=== PATIENT | male | born 1965 | race Caucasian/White ===

== ENCOUNTER 2018-04-21 05:15 | Day surgery (SDC) ==
[2018-04-13 09:27] LABS: HEMATOCRIT 49.5 % (42.0-52.0); HEMOGLOBIN 15.9 g/dL (14.0-18.0); MCH 31.1 PG (27-31); MCHC 32.1 g/dL (33-37); MCV 96.9 FL (81-99); MPV 9.5 FL (7.4-10.4); RBC 5.11 XMIL (4.7-6.1); RDW 13.2 % (11.5-14.5); WBC 5.97 X1000 (4.8-10.8)
[2018-04-13 09:34] LABS: INR 0.89; PROTIME 12.8 Seconds (11.0-16.0)
[2018-04-13 09:56] LABS: AGAP 15; BUN 9 mg/dL (8-22); CALCIUM 9.9 mg/dL (8.8-10.2); CHLORIDE 100 mmol/L (98-107); COSMO 284; CREATININE 0.9 mg/dL (0.7-1.2); ESTIMATED GFR > 60; GLUCOSE 172 mg/dL (70-104); POTASSIUM 4.1 mmol/L (3.5-5.1); SODIUM 141 mmol/L (136-145); TCO2 26 mmol/L (25-35)
[2018-04-21] MEDS ORDERED: KEFZOL 2 GM/D5W 2 GM/50 ML IVPB ONE (05:34)
[2018-04-21] MEDS ORDERED: LR 1,000 ML ONE ×2 (05:34→06:42)
[2018-04-21] MEDS ORDERED: VERSED ONE (06:31)
[2018-04-21] MEDS ORDERED: DIPRIVAN 1% ONE (06:31)
[2018-04-21] MEDS ORDERED: FENTANYL ONE (06:31)
[2018-04-21] MEDS ORDERED: SENSORCAINE-MPF 0.5%/EPI 1:200,000 ONE (06:42)
[2018-04-21] MEDS ORDERED: B & O 16A SUPP ONE (06:42)
[2018-04-21] MEDS ORDERED: ROBINUL ONE (07:39)
[2018-04-21] MEDS ORDERED: ZEMURON ONE (07:50)
[2018-04-21] MEDS ORDERED: NEOSTIGMINE ONE (08:10)
[2018-04-21 08:12] LABS: URINE SOURCE CATH
[2018-04-21 08:20] LABS: BILIRUBIN URINE NEGATIVE (NEGATIVE); BLOOD URINE NEGATIVE (NEGATIVE); COLOR YELLOW; GLUCOSE URINE NEGATIVE (NEGATIVE); KETONE URINE NEGATIVE (NEGATIVE); LEUKOCYTES URINE NEGATIVE (NEGATIVE); NITRITE URINE NEGATIVE (NEGATIVE); PROTEIN URINE NEGATIVE (NEGATIVE); SP GRAVITY URINE 1.008; TURBIDITY URINE CLEAR (CLEAR); UROBILINOGEN URINE NORMAL (NORMAL)
[2018-04-21 08:23] LABS: UR EPITHELIAL CELLS <10 /HPF (<10); URINE BACTERIA NEGATIVE /HPF; URINE RBC <10 /HPF (<10); URINE WBC <10 /HPF (<10)
[2018-04-21] MEDS ORDERED: ZOFRAN ONE (09:25)
[2018-04-21] MEDS ORDERED: DECADRON ONE (09:25)
[2018-04-21] MEDS ORDERED: MORPHINE ONE (09:27)
[2018-04-21] MEDS ORDERED: D5 1/2 NS 1,000 ML ONE (10:11)
[2018-04-21] MEDS ORDERED: MORPHINE IV PRN (11:47)
[2018-04-21] MEDS ORDERED: NORCO-10 PO PRN (12:00)
[2018-04-21] MEDS ORDERED: ZOFRAN IV PRN (12:00)
[2018-04-21] MEDS ORDERED: DILAUDID IV PRN ×2 (12:00)
[2018-04-21] MEDS ORDERED: PHENERGAN PR PRN (12:00)
[2018-04-21] MEDS ORDERED: OFIRMEV 1000 MG/ISOTONIC SOLN 1,000 MG/100 ML BOTTLE IV PRN (12:00)
[2018-04-21] MEDS ORDERED: LABETALOL IV PRN (12:00)
[2018-04-21] MEDS ORDERED: NORCO-7.5 PO PRN (12:00)
[2018-04-21] MEDS ORDERED: NORCO-5 PO PRN (12:00)
[2018-04-21] MEDS ORDERED: PHENERGAN IV PRN (12:00)
[2018-04-21] MEDS: D5 1/2 NS 1,000 ML IV SCH ×2 (12:00→21:14)
[2018-04-21] MEDS ORDERED: DITROPAN PO PRN (12:00)
[2018-04-21] MEDS ORDERED: SODIUM CHLORIDE 0.9% INJ PRN (12:00)
[2018-04-21] MEDS ORDERED: PHENERGAN PO PRN (12:00)
[2018-04-21] MEDS: KEFZOL 2 GM/D5W 2 GM/50 ML IVPB IV SCH ×2 (16:38→23:50)
[2018-04-21] MEDS: PERIDEX MT SCH (21:09)
[2018-04-21] MEDS: COLACE PO SCH (21:09)
[2018-04-22 06:23] LABS: HEMATOCRIT 40.6 % (42.0-52.0); HEMOGLOBIN 13.4 g/dL (14.0-18.0); MCH 31.8 PG (27-31); MCV 96.4 FL (81-99); MPV 9.4 FL (7.4-10.4); RBC 4.21 XMIL (4.7-6.1); RDW 13.3 % (11.5-14.5); WBC 14.17 X1000 (4.8-10.8)
[2018-04-22] MEDS: D5 1/2 NS 1,000 ML IV SCH (06:27)
[2018-04-22] MEDS: KEFZOL 2 GM/D5W 2 GM/50 ML IVPB IV SCH (06:27)
[2018-04-22 06:39] LABS: AGAP 11; BUN 10 mg/dL (8-22); CALCIUM 8.1 mg/dL (8.8-10.2); CHLORIDE 102 mmol/L (98-107); COSMO 279; CREATININE 0.8 mg/dL (0.7-1.2); ESTIMATED GFR > 60; GLUCOSE 212 mg/dL (70-104); SODIUM 137 mmol/L (136-145); TCO2 24 mmol/L (25-35)
[2018-04-22 07:30] VITALS: BP 122/71
[2018-04-22] MEDS ORDERED: CLARITIN-D 12 HR PO SCH (09:00)
[2018-04-22] MEDS ORDERED: ZOCOR PO SCH (09:00)
[2018-04-22] MEDS ORDERED: VYTORIN 10/40 MG PO SCH (09:00)
[2018-04-22] MEDS ORDERED: ZETIA PO SCH (09:00)
[2018-04-22] MEDS ORDERED: PATIENT'S OWN MED INH SCH (09:00)
[2018-04-22] MEDS: COLACE PO SCH (09:34)
[2018-04-22] MEDS: PERIDEX MT SCH (09:35)
--- NOTE | 2018-04-22 11:13 | OPERATIVE NOTE ---
PROCEDURE DATE: 04/21/2018 SURGEON: Jay Arriaga MD. PREOPERATIVE DIAGNOSIS: High risk prostate adenocarcinoma. PROCEDURE PERFORMED: Robotic-assisted laparoscopic prostatectomy, bilateral pelvic lymph node dissection, and laparoscopic urethral suspension. INDICATIONS: A 52-year-old male who presented with a rising PSA. He underwent prostate biopsy which revealed multifocal Wiggins 8 prostate adenocarcinoma. He had a negative CT scan and bone scan. He elected to proceed with surgical intervention. FINDINGS: Adequate hemostasis at the conclusion of the case. Watertight vesicourethral anastomosis with 240 mL of fluid in the bladder tested. DESCRIPTION OF PROCEDURE: After obtaining informed consent, the patient was brought to the operating room. Perioperative antibiotics and general endotracheal anesthesia were administered. He was placed in the lithotomy position, and prepped and draped in a sterile fashion. An 18- Israeli Lu catheter was introduced and the bladder was drained. We began by making a small stab incision in his umbilicus and introducing a Veress needle connected to a saline- filled syringe. We confirmed a positive drop test, followed by aspiration of fluid from the syringe without evidence of GI contents or blood. We then insufflated his peritoneum to 15 mmHg. The trocar sites were marked out in a standard prostatectomy fashion. Next, 10 mL of 0.5% Marcaine with epinephrine were used to inject subcutaneously at the incision sites. Bovie electrocautery was used to make the cut above the umbilicus. A 12 mm trocar was introduced, followed by insertion of a robotic camera. The peritoneal cavity was examined and there was no evidence of significant adhesions. We then introduced the rest of the trocars under direct vision. The patient was placed in a steep Trendelenburg position and the robot was docked. We began by making a small incision 2 cm above his rectum and identifying the right vas deferens. It was dissected and transected, followed by identification and isolation, dissection of right seminal vesicle. I used judicious cautery laterally to the seminal vesicle to preserve neurovascular bundle. We then performed the same thing on the left side. I then dissected anterior to vas deferens to the level of the prostate, followed by dissection posteriorly to seminal vesicles by incising through the Denonvilliers' fascia and developing a perirectal plane. Attention was then turned to dropping the bladder. I incised lateral to each medial umbilical ligament, allowing us to gain access to the space of Retzius. I reflected the fat off of the endopelvic fascia. It was incised along the contour of the prostate bilaterally and dissected off sharply, eventually transecting puboprostatic ligament sharply. Superficial venous dorsal complex was controlled with bipolar electrocautery. Deep dorsal venous complex was controlled with 0 V- Loc suture in a [id number] fashion, followed by anterior periosteal elevation. Attention was then turned to identification of the bladder neck. With gentle tugging on the Lu, the balloon was visualized. The balloon was not in a symmetric position, which raised my suspicion for the median lobe. I incised at the level of the bladder neck with monopolar cautery and eventually the lumen of the bladder came into the view. He indeed had a median lobe and the Lu catheter was brought into the operative field and placed in anterior traction with the fourth arm. I was able to visualize bilateral ureteral orifices with clear efflux and cauterized the edge and the border of the median lobe which was well away from the ureteral orifices. We then used scissors to make the plane between the prostate and the bladder after the median lobe was isolated. Eventually dissection extended, allowing us to gain access to the previously dissected vas deferens and seminal vesicles. Those were brought into the operative field and placed on anterior traction. Given his extent of high-risk prostate adenocarcinoma, I did not perform intrafascial dissection on the lateral edge of the prostate. I did save the neurovascular bundle by using the hemoclips and avoided cautery but I did go wider than typical fashion in order to try to achieve negative margins. Once the neurovascular bundles were reflected, I dissected between the posterior aspect of the prostate and the rectum until the apex was visible. Monopolar cautery was used to transect the dorsal venous complex and sharp scissors were used to dissect periurethral tissues. The urethra was eventually transected sharply. I did not use maximal urethral length sparing technique, again given his aggressive disease. Eventually, the prostate was free and placed into an EndoCatch bag. The wound was irrigated. There was small amount of bleeding right at the level of the previously transected dorsal vein. It was controlled with bipolar electrocautery. Following that, attention was turned to the pelvic lymph node dissection. On the left side, we reflected the bladder medially with the fourth arm. The lymph node packet was grasped and excised en bloc using the following margins of dissection: Pelvic sidewall laterally, confluence of external iliac vein into common iliac vein superiorly, perivesical fat medially, and obturator vessels and nerve posteriorly. Please note that I was able to visualize the obturator artery, vein, and nerve, and all those were preserved. The lymphatic packet was then placed into an EndoCatch bag. The pneumoperitoneal pressure was decreased to 3 mmHg without evidence of bleeding. Surgicel hemostatic agent was introduced into the lymphadenectomy bed in order to decrease lymphatic drainage. We then performed the same thing on the right side with identical margins. Attention was then turned to the anastomosis. We began by placing a Nicanor stitch with a 3-0 V-Loc suture in a running fashion, reapproximating the periurethral and perivesical fascia. We saved those sutures for future laparoscopic suspension. We then performed the vesicourethral anastomosis with another 3 V-Loc suture in a clockwise and counterclockwise fashion, eventually cross-tying the sutures. A fresh 18-Israeli Lu catheter was introduced without difficulties. We then instilled 240 mL of sterile fluid and there was no evidence of leakage at the vesicourethral anastomosis. Following that, attention was turned to placement of urethral suspension sutures. The previously used Nicanor sutures were threaded through the periosteum just a couple of centimeters lateral to the pubic tubercle. This allowed us to suspend the urethra nicely. The pneumoperitoneal pressure was then decreased to 3 mmHg. The entire field was inspected without evidence of bleeding or obvious injury noted. We then undocked the robot. His supraumbilical incision was extended. The prostate and lymph nodes were delivered out of the wound. The wounds were copiously irrigated and #2 PDS suture was used to close supraumbilical fascia in a running fashion. We then closed the 12 mm trocar with a 0 Vicryl suture in an interrupted fashion. The wounds were irrigated again. A 4-0 Monocryl suture was used for subcuticular closure. This was followed by application of Covidien hemostatic agent. He was then awakened, extubated, and taken to the PACU for further recovery. ESTIMATED BLOOD LOSS: 100 mL. COMPLICATIONS: None. DISPOSITION: To PACU and subsequently the floor for observation with Lu catheter to gravity drainage. cc: MD NARA Black
--- NOTE | 2018-04-22 11:26 | PROGRESS NOTE ---
DATE: 04/22/2018 SUBJECTIVE: Mr. Azar reports a good night overnight. His pain is well controlled. He denies nausea. He denies significant bladder spasms. OBJECTIVE: Vital Signs: Temperature 98.1 degrees, pulse 92, BP 122/71. His urine output was recorded in the amount of 2400 mL. General: No acute distress. Abdomen: Nontender, nondistended. Incisions are clean, dry, and intact in all port sites. : Lu catheter in place, draining light-pink urine without clots. PERTINENT LABORATORY DATA: His white cell count is 14,000, hematocrit 41, creatinine 0.8. ASSESSMENT AND PLAN: A 52-year-old male, postoperative day 1, status post robotic-assisted laparoscopic prostatectomy, bilateral pelvic lymph node dissection, and laparoscopic ureteral suspension, who is doing well. He was educated on postoperative care, and was deemed to be ready for discharge. Discharge home with Lu catheter in place with a large bag and a leg bag. He will go home with prescriptions for [place] 5 as needed, Keflex 250 twice daily, and Ditropan 5 mg as needed. We will see him in clinic on 04/26/2018 for Lu catheter removal and postoperative check. cc: Jay Arriaga MD
== END 2018-04-22 11:11 | disposition home or self-care (01) ==
LOC: OR 05:15 → 4N 05:15 → OR 04-22 11:11
PROVIDERS: ATTEND Urology
CPT/HCPCS: 80048; 81001; 85027; 85610; 85730; 88307; 88309; 94761; 94799; A9270; J0690; J1100; J2250; J2270; J2405; J3010; J7120; S2900